=== PATIENT | female | born 1965 | race Caucasian/White ===

== ENCOUNTER 2017-04-04 12:40 | Emergency (ER) | payer MEDICAID, OTHER ==
--- NOTE | 2017-04-04 13:11 | EDM.PDOC ---
ED HPI GENERAL MEDICAL PROBLEM - General Chief Complaint: Behavioral/Psych Stated Complaint: ANXIETY,DEPRESSION Time Seen by Provider: 04/04/17 13:06 Source of Information: Reports: Patient History Limitations: Reports: No Limitations - History of Present Illness INITIAL COMMENTS - FREE TEXT/NARRATIVE: History of present illness: [51-year-old female comes in complaining of some situational depression and anxiety. Indicates that her mother March 21 and while she was out here dealing with issues of her mother's estate she was called and notified that her 29-year-old son had accidentally overdosed. She medicates this did happen 5- 6 days ago but that she has been struggling with that and feels overwhelmed and occasionally has panic attacks. Patient indicates this is not common for her that she's never been on any medication but she is staying in the local hotel with her sister who is an ER nurse who suggested she come and get the day or 2 of antianxiety medicine for the viewing and in the upcoming 2-3 days.] Review of systems: As per history of present illness and below otherwise all systems reviewed and negative. Past medical history: As per history of present illness and as reviewed below otherwise noncontributory. Surgical history: As per history of present illness and as reviewed below otherwise noncontributory. Social history: No reported history of drug or alcohol abuse. Family history: As per history of present illness and as reviewed below otherwise noncontributory. Physical exam: HEENT: Atraumatic, normocephalic, pupils reactive, negative for conjunctival pallor or scleral icterus, mucous membranes moist, throat clear, neck supple, nontender, trachea midline. Lungs: Clear to auscultation, breath sounds equal bilaterally, chest nontender. Heart: S1S2, regular, negative for clicks, rubs, or JVD. Abdomen: Soft, nondistended, nontender. Negative for masses or hepatosplenomegaly. Negative for costovertebral tenderness. Pelvis: Stable nontender. Genitourinary: Deferred. Rectal: Deferred. Extremities: Atraumatic, negative for cords or calf pain. Neurovascular unremarkable. Neuro: Awake, alert, oriented. Cranial nerves II through XII unremarkable. Cerebellum unremarkable. Motor and sensory unremarkable throughout. Exam nonfocal. Patient's global assessment is benign save she is somewhat tearful and presents clearly grieving and struggling with the multiple losses of her family unit within the last couple weeks. Diagnostics: [] Therapeutics: [] Impression: [Situational depression and anxiety] Plan: [Brief run of Ativan] Definitive disposition and diagnosis as appropriate pending reevaluation and review of above. - Related Data Allergies Allergy/AdvReac Type Severity Reaction Status Date / Time No Known Allergies Allergy Verified 04/04/17 12:57 Social & Family History - Tobacco Use Smoking Status *Q: Current Every Day Smoker Years of Tobacco use: 30 Packs/Tins Daily: 1 - Caffeine Use Caffeine Use: Reports: Coffee Caffeine Use Comment: 1 cup daily - Recreational Drug Use Recreational Drug Use: No ED ROS GENERAL - Review of Systems Review Of Systems: See Below (See history of present illness) ED EXAM, BEHAVIORAL HEALTH - Physical Exam Exam: See Below (See history of present illness) COURSE, BEHAVIORAL HEALTH COMP - Course Vital Signs: Last Vital Signs Temp 36.1 C 04/04/17 12:59 Pulse 95 04/04/17 12:59 Resp 18 04/04/17 12:59 BP 154/78 H 04/04/17 12:59 Pulse Ox 98 04/04/17 12:59 Departure - Departure Time of Disposition: 13:11 Disposition: Home, Self-Care 01 Condition: good Clinical Impression: Depressive disorder - Discharge Information Forms: ED Department Discharge Additional Instructions: The following information is given to patients seen in the emergency department who are being discharged to home. This information is to outline your options for follow-up care. We provide all patients seen in our emergency department with a follow-up referral. The need for follow-up, as well as the timing and circumstances, are variable depending upon the specifics of your emergency department visit. If you don't have a primary care physician on staff, we will provide you with a referral. We always advise you to contact your personal physician following an emergency department visit to inform them of the circumstance of the visit and for follow-up with them and/or the need for any referrals to a consulting specialist. The emergency department will also refer you to a specialist when appropriate. This referral assures that you have the opportunity for follow-up care with a specialist. All of these measure are taken in an effort to provide you with optimal care, which includes your follow-up. Under all circumstances we always encourage you to contact your private physician who remains a resource for coordinating your care. When calling for follow-up care, please make the office aware that this follow-up is from your recent emergency room visit. If for any reason you are refused follow-up, please contact the [facility] Emergency Department at and asked to speak to the emergency department charge nurse. He had been given A very brief run of anti-anxiety medicine. Please if you continue to struggle with these issues and the grieving process seek counseling and/or help when you return home. If you become unwell or have any other needs please return to the ER as needed as discussed
[2017-04-04 14:05] VITALS: BP 132/79
== END 2017-04-04 13:36 | disposition home or self-care (01) ==
LOC: MW.ED 12:40
DX: F32.9 Major depressive disorder, single episode, unspecified (principal); F41.9 Anxiety disorder, unspecified; F17.210 Nicotine dependence, cigarettes, uncomplicated
CPT/HCPCS: 99283